=== PATIENT | male | born 1965 | race Two or more races ===

== ENCOUNTER 2024-12-04 08:04 | Emergency (ER) | payer MEDICAID, SELFPAY ==
[2024-12-04 08:13] VITALS: BP 162/92; PULSE 63; RESP 20; TEMP 36.8; O2SAT 97; BMI 24.7
--- NOTE | 2024-12-04 08:17 | EKG_ITS ---
[facility] Test Date: 2024-12-04 Pat Name: BELKYS FRANKS Department: Room: - Gender: Male [employer] Project Engineer: : [id number] Requested By: Raimundo Wright Order Number: [id number] Reading MD: Raimundo Wright Measurements Intervals [place] Rate: 61 P: 36 OR: 164 QRS: -35 QRSD: 88 T: 43 QT: 401 QTc: 407 Interpretive Statements SINUS RHYTHM WITH OCCASIONAL VENTRICULAR PREMATURE COMPLEXES MARKED LEFT AXIS DEVIATION [QRS AXIS < -30] MODERATE VOLTAGE CRITERIA FOR LVH, CONSIDER NORMAL VARIANT [MEETS CRITERIA IN ONE OF: R(aVL), S(V1), R(V5), R(V5/V6)+S(V1)] No previous ECG available for comparison /store/S0/[id number].pdf
--- NOTE | 2024-12-04 08:20 | EDNOTE_ITS ---
Upper Respiratory Inf. RME/HPI General Chief Complaint: Flu Like Symptoms Stated Complaint: Sob, cough, fever x 4 days Time Seen by Provider: 12/04/24 08:09 Arrival date/time: 12/04/24 08:04 RME / HPI RME / HPI Narrative: This section includes all my notes and documentations, including HPI, PE, and ED course.? Raimundo Florez MD HPI: 59 year old male with smoking history presents with about a week history of worsening cough, productive cough, purulent sputum, and dyspnea. ROS: All negative except as documented in HPI. Physical Exam: General:? Alert and oriented.? Hacking cough noted. Eyes:? Conjunctivae and lids clear.? ENT:? No nasal congestion.??Pharynx normal. TM normal bilaterally. Neck:? Supple.? Heart:? RRR.? Lungs:? Decreased air movement with rhonchi bilaterally. Abdomen:? Soft and nontender.?? Legs:? No clubbing, cyanosis, edema.? Skin:? Warm and dry.?? Neuro:? Alert and oriented X 3.?? I reviewed all diagnostic test results. My interpretation of the chest x-ray is increased bronchial markings. COVID/influenza negative. At this point, diagnoses include?bronchitis. Treatment here included?prednisone and DuoNeb and two Tylenol #3 and Zithromax. Significant improvement noted. Recommended a trial of outpatient treatment. Based on my best medical judgment, made decision no further evaluation or treatment indicated at this time.? Patient understands and agrees to the discharge instructions customized and printed, see below. Raimundo Florez MD Discharge instructions from Dr. Florez: --No physical exertion for 3 days to help rest the lungs. ?-No smoking or exposure to smoking or pets or dust or cold or humidity. --Zithromax to kill the germs causing the bronchitis. --Prednisone to help decrease the swelling in the airways. --Albuterol 2 puffs every 4-6 hours today and tomorrow to help keep the airways open. Then as needed for cough or shortness of breath. --Tylenol with codeine for severe cough. --See a private doctor next week if not completely better. --Seek immediate medical care with worsening or with any concerns. Instrucciones de frederic del Dr. Florez: --No hacer laure?n esfuerzo f?sico jono 3 d?as para ayudar a que los pulmones descansen. --No fumar ni exponerse al humo del tabaco, a las mascotas, al polvo, al fr?o o a la humedad. --Zithromax para matar los g?rmenes que causan la bronquitis. --Prednisona para ayudar a disminuir la hinchaz?n de las v?as respiratorias. --Albuterol 2 inhalaciones cada 4-6 horas hoy y ma?ashley para ayudar a mantener las v?as respiratorias abiertas. Luego, seg?n sea necesario, para la tos o la falta de aire. --Tylenol con code?na para la tos intensa. --Consulte a un m?dico privado la pr?xima semana si no mejora por completo. --Busque atenci?n m?dica inmediata si la enfermedad empeora o si tiene alguna inquietud. Related Data Home Medications ?Medication ?Instructions ?Recorded ?Confirmed clindamycin HCl 300 mg capsule 1 cap PO TID 07/18/18 07/18/18 Previous Rx's ?Medication ?Instructions ?Recorded acetaminophen 500 mg tablet 500 mg PO QID PRN fever or pain 12/09/20 (Tylenol Extra Strength) #60 tabs albuterol sulfate 90 mcg/actuation 2 puff inhalation Q6H PRN 12/09/20 aerosol inhaler (ProAir HFA) shortness of breath or wheezing #6.7 grams azithromycin 250 mg tablet See Rx Instructions PO .COMPLEX #6 12/09/20 tabs benzonatate 100 mg capsule 100 mg PO BID PRN cough #20 caps 12/09/20 ibuprofen 600 mg tablet 600 mg PO Q6H PRN pain or fever 12/09/20 #60 tabs acetaminophen 300 mg-codeine 30 mg 2 tab PO TID PRN pain #20 tabs 12/04/24 tablet albuterol sulfate 90 mcg/actuation 2 inh inhalation QID PRN shortness 12/04/24 aerosol inhaler of breath or wheezing #8.5 grams azithromycin 500 mg tablet 500 mg PO QDAY 3 days #3 tabs 12/04/24 (Zithromax TRI-DEEP) prednisone 20 mg tablet 40 mg PO BID 3 days #12 tabs 12/04/24 Allergies Allergy/AdvReac Type Severity Reaction Status Date / Time Penicillins Allergy Intermediate Fainting Verified 12/04/24 08:07 Review of Systems Review of Systems Systems Reviewed: All systems reviewed, normal except as documented Past Medical History Past Medical History CARDIAC: Positive Cardiac Disorders and Hypertension; Negative Congestive Heart Failure RESPIRATORY: Negative Chronic Obstructive Pulmonary Disease (COPD) GENITOURINARY: Negative Renal Disease ENDOCRINE: Negative Diabetes Mellitus Type 1 or Diabetes Mellitus Type 2 Social History SMOKING STATUS: Light (< 1 pack/day) ED Exam Narrative Physical exam: As noted in HPI Course Course Course Narrative: chest xray ordered to help determine etiology of cough and shortness of breath. Quality Measures none Orders Category Date Time Status Bedside COVID-19 Antigen Test NOW Care 12/04/24 08:24 Active Bedside Influenza A&B Antigen Test NOW Care 12/04/24 08:24 Completed EKG (ED ONLY) *Do not use* NOW Care 12/04/24 08:17 Completed EKG (ED Only) Stat Exams 12/04/24 08:17 Draft XR chest 1V portable Stat Exams 12/04/24 08:24 Completed ACETAMINOPHEN w/COD 300-30 [Tylenol w/Cod #3] Med 12/04/24 08:23 Discontinued 2 tab PO X1 ONE Albuterol/Ipratr Rt Emy [Duoneb Rt Emy] Med 12/04/24 08:23 Discontinued 3 ml INH X1 ONE Azithromycin Po [Zithromax PO] Med 12/04/24 10:06 Discontinued 500 mg PO X1 ONE predniSONE Med 12/04/24 08:23 Discontinued 60 mg PO X1 ONE Vital Signs Vital signs: Vital Signs Temperature 98.3 F 12/04/24 08:13 Pulse Rate 63 12/04/24 08:13 Respiratory Rate 20 12/04/24 08:13 Blood Pressure 162/92 H 12/04/24 08:13 Pulse Oximetry (%) 97 12/04/24 08:13 Oxygen Delivery Method Room Air 01/07/25 08:13 Pulse ox is 97% on room air which is adequate. Upper Respiratory Infection Patient data External records reviewed:: [facility] previous records (I reviewed ED visit on 12/09/2020) Clinical information provided by:: patient Social determinants that could affect healthcare access:: none Patient has the following chronic illnesses:: Asthma and chronic smoker How is presenting disease/condition affected by chronic disease/condition?: exacerbated by Evaluation data The following diagnostics were reviewed and interpreted by me:: lab results, radiology exam(s) and EKG tracing(s) (My interpretation of the EKG is: Sinus rhythm (61 bpm) with PVCs and nonspecific ST-T changes. Raimundo Florez MD) Lab and/or radiology exams considered but not ordered:: None Interpretation Summary: Bronchitis Medications / Prescriptions Medications or Prescriptions considered but not ordered:: None Medication administrations:: Medication Administration History Discontinued Medications Acetaminophen/Codeine Phosphate (Acetaminophen W/Cod 300-30 Tablet) 2 tab PO X1 ONE Stop: 12/04/24 08:24 Last Admin: 12/04/24 08:58 Dose: 2 tab Documented By: GM Albuterol/Ipratropium (Albuterol/Ipratropium (Duoneb) Rt Emy 3 Ml Nebu) 3 ml INH X1 ONE Stop: 12/04/24 08:24 Last Admin: 12/04/24 09:19 Dose: 3 ml Documented By: BA Azithromycin (Azithromycin 250 Mg Tablet) 500 mg PO X1 ONE Stop: 12/04/24 10:07 Prednisone (Prednisone 20 Mg Tablet) 60 mg PO X1 ONE Stop: 12/04/24 08:24 Last Admin: 12/04/24 08:58 Dose: 60 mg Documented By: GM Prednisone and DuoNeb and two Tylenol #3 and Zithromax Consultations Consultation(s) initiated? (list below): No Diagnosis Upper Respiratory Differential Diagnosis: upper respiratory infection, viral infection, bronchitis, influenza and other (Pneumonia and COVID) Most likely diagnosis given after review of the tests above:: Bronchitis Admission Indicated Admission indicated?: not indicated Explain why admission is indicated or not indicated:: Admission criteria not met Admission Request Was there a request for admission?: No Disposition Plan Disposition Plan: Discharge Discharge Attestation Discharge Attestation: The patient and all family members were given an opportunity to ask questions and understood the discharge instructions. Discharge instructions specifically effects, indications for sooner follow up or return to the emergency department, and the expected course of current diagnosis. Patient condition: Stable Discharge Plan Plan Patient Disposition: HOME (Self Care) Prescriptions/Referrals Prescriptions/Med Rec: New prednisone 20 mg tablet 40 mg PO BID 3 Days Qty: 12 0RF Taper: Prednisone Taper 20 mg DAILY for 2 Days and 0 Hour 10 mg DAILY for 2 Days and 0 Hour 5 mg DAILY for 7 Days and 0 Hour acetaminophen-codeine 300-30 mg tablet 2 tab PO TID MDD 6 PRN (Reason: pain) Qty: 20 0RF albuterol sulfate 90 mcg/actuation HFA aerosol inhaler 2 inh inhalation QID PRN (Reason: shortness of breath or wheezing) Qty: 8.5 0RF azithromycin [Zithromax TRI-DEEP] 500 mg tablet 500 mg PO QDAY 3 Days Qty: 3 0RF No Action clindamycin HCl 300 mg Capsule 1 cap PO TID azithromycin 250 mg tablet See Rx Instructions .ROUTE .COMPLEX Qty: 6 0RF Rx Instructions: take 500 mg today (day 1), then 250 mg for 4 days (days 2-5) acetaminophen [Tylenol Extra Strength] 500 mg tablet 500 mg PO QID PRN (Reason: fever or pain) Qty: 60 0RF benzonatate 100 mg capsule 100 mg PO BID PRN (Reason: cough) Qty: 20 0RF ibuprofen 600 mg tablet 600 mg PO Q6H PRN (Reason: pain or fever) Qty: 60 0RF albuterol sulfate [ProAir HFA] 90 mcg/actuation HFA aerosol inhaler 2 puff inhalation Q6H PRN (Reason: shortness of breath or wheezing) Qty: 6.7 0RF Referrals: Noble Green MD [Primary Care Provider] - In 1 week Problem List Clinical Impression: Bronchitis Patient/Caregiver Discharge Instructions Discharge Activity: activity as tolerated Education Materials: ED Bronchitis with Wheezing (Adult) Additional Instructions: Discharge instructions from Dr. Florez: --No physical exertion for 3 days to help rest the lungs. ?-No smoking or exposure to smoking or pets or dust or cold or humidity. --Zithromax to kill the germs causing the bronchitis. --Prednisone to help decrease the swelling in the airways. --Albuterol 2 puffs every 4-6 hours today and tomorrow to help keep the airways open. Then as needed for cough or shortness of breath. --Tylenol with codeine for severe cough. --See a private doctor next week if not completely better. --Seek immediate medical care with worsening or with any concerns. Instrucciones de frederic del Dr. Florez: --No hacer laure?n esfuerzo f?sico jono 3 d?as para ayudar a que los pulmones descansen. --No fumar ni exponerse al humo del tabaco, a las mascotas, al polvo, al fr?o o a la humedad. --Zithromax para matar los g?rmenes que causan la bronquitis. --Prednisona para ayudar a disminuir la hinchaz?n de las v?as respiratorias. --Albuterol 2 inhalaciones cada 4-6 horas hoy y ma?ashley para ayudar a mantener las v?as respiratorias abiertas. Luego, seg?n sea necesario, para la tos o la falta de aire. --Tylenol con code?na para la tos intensa. --Consulte a un m?dico privado la pr?xima semana si no mejora por completo. --Busque atenci?n m?dica inmediata si la enfermedad empeora o si tiene alguna inquietud. Print Language: Congolese Stand Alone Forms: Sandy Award Info., Patient Portal Info Letter
--- NOTE | 2024-12-04 08:24 | XR_ITS ---
Examination: PA chest single view TECHNIQUE: Upright PA chest single view Exam date and time: December 04, 2024 0844 hours INDICATIONS: Shortness of breath beginning 5 days ago. FINDINGS: Normal heart size Minor atelectasis in the right lower lobe No pneumonia or pulmonary edema Intact osseous structures IMPRESSION: No pneumonia or pulmonary edema
[2024-12-04] MEDS: predniSONE 20 MG TABLET 60 MG PO (08:58)
[2024-12-04] MEDS: ACETAMINOPHEN w/COD 300-30 TABLET 2 TAB PO (08:58)
--- NOTE | 2024-12-04 09:13 | PC.NURSE ---
RT at bedside made aware of pt's breathing treatment order. Per RT, will go grab pt's breathing treatment med and nebulizer.
[2024-12-04] MEDS: ALBUTEROL/IPRATROPIUM (Duoneb) RT SOL 3 ML NEBU INH (09:19)
[2024-12-04 09:21] VITALS: PULSE 64; RESP 22; O2SAT 99
[2024-12-04 10:14] VITALS: BP 156/94; PULSE 61; RESP 18; TEMP 36.6; O2SAT 98
== END 2024-12-04 10:20 | disposition home or self-care (01) ==
PROVIDERS: Emergency Provider Emergency Medicine; PCP Family Medicine
DX: J40 Bronchitis, not specified as acute or chronic (principal)
CPT/HCPCS: 71045; 87400; 87811; 93005; 94640; 99283; A9270; J7512

== ENCOUNTER → 2024-12-24 | Outpatient (CLI) | payer OTHER, SELFPAY ==
[2024-12-24 11:26] LABS: Amphetamine/Methamp Scrn,U Negative (Negative); Barbiturate Screen,Urine Negative (Negative); Benzodiazepines Screen,Urine Negative (Negative); Benzoylecgonine Screen, Ur Negative (Negative); Fentanyl Screen,Urine Negative (Negative); Opiate Screen,Urine Positive (Negative); THC Screen,Urine Negative (Negative)
== END | disposition home or self-care (01) ==
PROVIDERS: PCP Family Medicine; Referring Provider Family Medicine; Visit Provider Family Medicine
DX: M54.2 Cervicalgia (principal); Z71.51 Drug abuse counseling and surveillance of drug abuser
CPT/HCPCS: 80307

== ENCOUNTER 2024-12-31 09:14 | Emergency (ER) | payer MEDICAID, SELFPAY ==
[2024-12-31 09:15] VITALS: BMI 25.2
[2024-12-31 09:40] VITALS: BP 125/81; PULSE 69; RESP 19; TEMP 37.2; O2SAT 98; BMI 28.2
--- NOTE | 2024-12-31 09:49 | XR_ITS ---
Examination: PA lateral chest 2 views TECHNIQUE: Upright PA lateral chest 2 views Exam date and time: December 31, 2024 0951 hours INDICATIONS: Shortness of breath chest pain coughing beginning 4 days ago. FINDINGS: Normal heart size No pneumonia or pulmonary edema The osseous structures are intact IMPRESSION: No active disease
--- NOTE | 2024-12-31 12:16 | PD.EDURI ---
Upper Respiratory Inf. RME/HPI General Chief Complaint: Flu Like Symptoms Stated Complaint: COUGH, FEVER, CRAMPING X4 DAYS Time Seen by Provider: 12/31/24 09:44 Arrival date/time: 12/31/24 09:14 59-year-old male presents to emergency department today complains of cough, congestion and fever ongoing x 4 days patient ports no chest pain or shortness of breath Limitations: no limitations Related Data Home Medications ?Medication ?Instructions ?Recorded ?Confirmed clindamycin HCl 300 mg capsule 1 cap PO TID 07/18/18 07/18/18 Previous Rx's ?Medication ?Instructions ?Recorded acetaminophen 500 mg tablet 500 mg PO QID PRN fever or pain 12/09/20 (Tylenol Extra Strength) #60 tabs albuterol sulfate 90 mcg/actuation 2 puff inhalation Q6H PRN 12/09/20 aerosol inhaler (ProAir HFA) shortness of breath or wheezing #6.7 grams azithromycin 250 mg tablet See Rx Instructions PO .COMPLEX #6 12/09/20 tabs benzonatate 100 mg capsule 100 mg PO BID PRN cough #20 caps 12/09/20 ibuprofen 600 mg tablet 600 mg PO Q6H PRN pain or fever 12/09/20 #60 tabs acetaminophen 300 mg-codeine 30 mg 2 tab PO TID PRN pain #20 tabs 12/04/24 tablet albuterol sulfate 90 mcg/actuation 2 inh inhalation QID PRN shortness 12/04/24 aerosol inhaler of breath or wheezing #8.5 grams albuterol sulfate 90 mcg/actuation 2 puff inhalation Q6H PRN 12/31/24 aerosol inhaler (Ventolin HFA) shortness of breath or wheezing #8.5 grams azithromycin 500 mg tablet See Rx Instructions PO .COMPLEX #6 12/31/24 tabs benzonatate 100 mg capsule 100 mg PO TID #14 caps 12/31/24 prednisone 10 mg tablet 30 mg (3 x 10 mg) PO BID 3 days 12/31/24 #18 tabs Allergies Allergy/AdvReac Type Severity Reaction Status Date / Time Penicillins Allergy Intermediate Fainting Verified 12/31/24 09:18 ED Exam General Limitations: Present no limitations General appearance: Present alert and in no apparent distress Head Head exam: Present atraumatic, normocephalic and normal inspection Eye Eye exam: Present normal appearance, PERRL and EOMI; Absent conjunctival injection ENT ENT exam: Present normal exam, normal oropharynx and mucous membranes moist Neck Neck exam: Present normal inspection, full ROM and trachea midline Chest Chest inspection: Present normal inspection and symmetric chest wall rise Respiratory Respiratory exam: Present normal lung sounds bilaterally; Absent respiratory distress, wheezes, stridor, accessory muscle use or prolonged expiratory phase Cardiovascular Cardiovascular exam: Present regular rate, normal rhythm and normal heart sounds; Absent bradycardia, tachycardia or irregular rhythm Abdominal Exam Abdominal exam: Present soft and normal bowel sounds; Absent distention, tenderness, guarding, rebound or rigidity Extremities Exam Extremities exam: Present normal inspection and full ROM Back Exam Back exam: Present normal inspection and full ROM Neurological Exam Neurological exam: Present alert, oriented X3 and CN II-XII intact Psychiatric Psychiatric exam: Present normal affect and normal mood Skin Skin exam: Present warm, dry, intact and normal color Course Quality Measures none Orders Category Date Time Status Bedside Influenza A&B Antigen Test NOW Care 12/31/24 09:49 Active XR chest 2V Stat Exams 12/31/24 09:49 Completed Vital Signs Vital signs: Vital Signs Temperature 99.0 F 12/31/24 09:40 Pulse Rate 69 12/31/24 09:40 Respiratory Rate 19 12/31/24 09:40 Blood Pressure 125/81 12/31/24 09:40 Pulse Oximetry (%) 98 12/31/24 09:40 Oxygen Delivery Method Room Air 12/31/24 09:40 O2 saturation 98% room air within normal limits Upper Respiratory Infection MDM Narrative MDM Narrative:: 59-year-old male presents to emergency department today complains of cough, congestion and fever ongoing x 4 days patient ports no chest pain or shortness of breath On exam patient well-appearing patient does not appear ill or toxic Chest x-ray and flu obtained Flu is negative chest x-ray negative Symptoms consistent with URI Patient discharged home in no distress to follow-up with primary care doctor in the next 24 to 48 hours and for any worsening symptoms to return to the ER immediately Patient data External records reviewed:: [facility] previous records Clinical information provided by:: patient Social determinants that could affect healthcare access:: none Patient has the following chronic illnesses:: None How is presenting disease/condition affected by chronic disease/condition?: no chronic disease Evaluation data The following diagnostics were reviewed and interpreted by me:: radiology exam(s) Lab and/or radiology exams considered but not ordered:: Radiology obtain influenza obtain Interpretation Summary: Reviewed by me Medications / Prescriptions Medications or Prescriptions considered but not ordered:: Given Medication administrations:: Given Consultations Consultation(s) initiated? (list below): No Diagnosis Upper Respiratory Differential Diagnosis: upper respiratory infection, sinusitis, viral infection, bronchitis and influenza Most likely diagnosis given after review of the tests above:: URI Admission Indicated Admission indicated?: not indicated Admission Request Was there a request for admission?: No Disposition Plan Disposition Plan: Discharge Discharge Attestation Discharge Attestation: The patient and all family members were given an opportunity to ask questions and understood the discharge instructions. Discharge instructions specifically effects, indications for sooner follow up or return to the emergency department, and the expected course of current diagnosis. Patient condition: Stable Discharge Plan Plan Patient Disposition: HOME (Self Care) Disposition Comment: stable Prescriptions/Referrals Prescriptions/Med Rec: New prednisone 10 mg tablet 30 mg PO BID 3 Days Qty: 18 0RF benzonatate 100 mg capsule 100 mg PO TID Qty: 14 0RF albuterol sulfate [Ventolin HFA] 90 mcg/actuation HFA aerosol inhaler 2 puff inhalation Q6H PRN (Reason: shortness of breath or wheezing) Qty: 8.5 0RF azithromycin 500 mg tablet See Rx Instructions .ROUTE .COMPLEX Qty: 6 0RF Rx Instructions: take 500 mg today (day 1), then 250 mg for 4 days (days 2-5) No Action clindamycin HCl 300 mg Capsule 1 cap PO TID azithromycin 250 mg tablet See Rx Instructions .ROUTE .COMPLEX Qty: 6 0RF Rx Instructions: take 500 mg today (day 1), then 250 mg for 4 days (days 2-5) acetaminophen [Tylenol Extra Strength] 500 mg tablet 500 mg PO QID PRN (Reason: fever or pain) Qty: 60 0RF benzonatate 100 mg capsule 100 mg PO BID PRN (Reason: cough) Qty: 20 0RF ibuprofen 600 mg tablet 600 mg PO Q6H PRN (Reason: pain or fever) Qty: 60 0RF albuterol sulfate [ProAir HFA] 90 mcg/actuation HFA aerosol inhaler 2 puff inhalation Q6H PRN (Reason: shortness of breath or wheezing) Qty: 6.7 0RF acetaminophen-codeine 300-30 mg tablet 2 tab PO TID MDD 6 PRN (Reason: pain) Qty: 20 0RF albuterol sulfate 90 mcg/actuation HFA aerosol inhaler 2 inh inhalation QID PRN (Reason: shortness of breath or wheezing) Qty: 8.5 0RF Referrals: Noble Green MD [Primary Care Provider] - In 1 week Problem List Clinical Impression: URI (upper respiratory infection) Patient/Caregiver Discharge Instructions Additional Instructions: Please follow up with your primary care doctor in the next 24-48hrs for any worsening symptoms return here immediately Print Language: Finnish Stand Alone Forms: Sandy Award Info., Patient Portal Info Letter PA/GROUNDS CARETAKER Supervising Physician PA/GROUNDS CARETAKER Supervising Physician: Dr Corrales
== END 2024-12-31 12:57 | disposition home or self-care (01) ==
PROVIDERS: Emergency Provider Emergency Medicine; PCP Family Medicine
DX: J06.9 Acute upper respiratory infection, unspecified (principal)
CPT/HCPCS: 71046; 99283